=== PATIENT | female | born 1935 | race African-American/Black ===

== ENCOUNTER → 2017-05-04 | Outpatient (CLI) | payer MEDICARE ==
[~2017-05-04] MED LIST: AMLODIPINE BESYL5 MG PO; COMBIGAN EYE DRO5 ML OU; LUMIGAN2.5 M1 OP; MULTI-VITAMIN1 EACH PO; PRAVASTATIN SOD20 MG PO; XARELTO20 MG PO
--- NOTE | 2017-05-17 16:20 | Diagnostic Imaging Report ---
#[id number] - MGSCRBIL #BILATERAL DIGITAL SCREENING MAMMOGRAM WITH CAD: 05/04/2017 CLINICAL: Routine screening. Comparison is made to exams dated: 05/04/2016 mammogram, 04/20/2015 mammogram and 03/29/2014 mammogram - [facility]. Current study contains 4 films. The tissue of both breasts is heterogeneously dense. This may lower the sensitivity of mammography. Current study was also evaluated with a Computer Aided Detection (CAD) system. There are benign vascular calcifications in both breasts. No significant masses, calcifications, or other findings are seen in either breast. There has been no significant interval change. IMPRESSION: BENIGN There is no mammographic evidence of malignancy. A 1 year screening mammogram is recommended. The patient will be notified by letter of the results. Logan antonio/nissa:05/17/2017 11:12:27 Infusion Nurse: Noy GEE(Yemi)(M), [facility] letter sent: Compared to Prior B9 Mammogram BI-RADS: 2 Benign
== END ==
LOC: MAMMO 11:11
PROVIDERS: ATTEND Internal Medicine
DX: Z12.31 Encounter for screening mammogram for malignant neoplasm of breast (principal)
CPT/HCPCS: G0202

== ENCOUNTER → 2018-05-04 | Outpatient (CLI) | payer MEDICARE ==
--- NOTE | 2018-05-11 08:20 | Diagnostic Imaging Report ---
#[id number] - MGSCRBIL #BILATERAL DIGITAL SCREENING MAMMOGRAM WITH CAD: 05/04/2018 CLINICAL: Routine screening. Comparison is made to exams dated: 05/04/2017 mammogram and 04/20/2015 mammogram - [facility]. Current study contains 4 films. The tissue of both breasts is heterogeneously dense. This may lower the sensitivity of mammography. Current study was also evaluated with a Computer Aided Detection (CAD) system. There are benign vascular calcifications in both breasts. No significant masses, calcifications, or other findings are seen in either breast. There has been no significant interval change. IMPRESSION: BENIGN There is no mammographic evidence of malignancy. A 1 year screening mammogram is recommended. The patient will be notified by letter of the results. Logan antonio/nissa:05/09/2018 08:55:43 Dressed Poultry Grader: Noy GEE(R)(M), [facility] letter sent: Compared to Prior B9 Mammogram BI-RADS: 2 Benign
== END ==
LOC: MAMMO 12:14
PROVIDERS: ATTEND Internal Medicine
DX: Z12.31 Encounter for screening mammogram for malignant neoplasm of breast (principal)
CPT/HCPCS: 77067

== ENCOUNTER → 2019-05-06 | Outpatient (CLI) | payer MEDICARE ==
--- NOTE | 2019-05-21 09:11 | Diagnostic Imaging Report ---
#[id number] - MGSCRBIL #BILATERAL DIGITAL SCREENING MAMMOGRAM WITH CAD: 05/06/2019 Comparison is made to exams dated: 05/04/2018 mammogram and 05/04/2017 mammogram - [facility]. The tissue of both breasts is heterogeneously dense. This may lower the sensitivity of mammography. Current study was also evaluated with a Computer Aided Detection (CAD) system. There is an oval equal density asymmetry with a circumscribed margin in the right breast middle depth central to the nipple seen on the craniocaudal view only. No other significant masses, calcifications, or other findings are seen in either breast. IMPRESSION: INCOMPLETE: NEEDS ADDITIONAL IMAGING EVALUATION The oval equal density asymmetry in the right breast is indeterminate. Additional views as well as a possible ultrasound are recommended. The patient will be contacted by the Mammography Department to schedule this appointment. SHIMON tellez/nissa:05/20/2019 15:15:53 Tool Clerk: Noy GEE(R)(M), [facility] letter sent: Additional Imaging Needed Mammogram BI-RADS: 0 Indeterminate
== END ==
LOC: MAMMO 13:09
PROVIDERS: ATTEND Internal Medicine
DX: Z12.31 Encounter for screening mammogram for malignant neoplasm of breast (principal)
CPT/HCPCS: 77067

== ENCOUNTER 2019-07-23 19:01 | Emergency (ER) | payer MEDICARE ==
[~2019-07-23] VITALS: Ht 157.5 cm; Wt 58.5 kg
--- OUTSIDE RECORDS SUMMARY | 2019-07-23 19:04 | XMS REPORT ---
Author Author [facility] Address Unknown Phone Unavailable Care Team Providers Care Certified Pediatric Nurse Practitioner Name Role Phone FERN KIM Unavailable Unavailable Problems This patient has no known problems. Allergies, Adverse Reactions, Alerts This patient has no known allergies or adverse reactions. Medications This patient has no known medications. Results Test Description Test Time Test Comments Text Results Atomic Results Result Comments US BREAST LIMITED RIGHT 2019-06-11 13:43:00 [place] [address] Patient Name: TORY BECK MR #: [id number] : 1935 Age/Sex: 84/F Req #: [id number] [facility] Physician: Ordered by: FERN KIM MD Report #: [id number] Location: MAMMO Room/Bed: Procedure: [id number] US/US BREAST LIMITED RIGHT Exam Date: Exam Time: REPORT STATUS: Signed #[id number] - USBRELIMRT ULTRASOUND OF THE RIGHT BREAST : 06/11/2019 Comparison is made to exams dated: 06/11/2019 mammogram and 05/06/2019 mammogram - [facility]. Color flow and real-time ultrasound were performed on the right breast. Hutchinson scale images of the real-time examination were reviewed. IMPRESSION: NEGATIVE There is no sonographic evidence of malignancy. A 1 year screening mammogram is recommended. SHIMON tellez/elizabeth:06/12/2019 10:04:42 Hand Candy Dipper: RACHEL HUDSON RDTN, [facility] letter sent: Normal Exam Ultrasound BI-RADS: 1 Negative Dictated By: SHIMON REZA MD 100 Transcribed By: ELIZABETH on 06/12/19 1004 COPY TO: FERN KIM MD MAMMOGRAPHY DIGITAL DX UNI RT 2019-06-11 13:19:00 [place] [address] Patient Name: TORY BECK MR #: [id number] : 1935 Age/Sex: 84/F Req #: [id number] Adm Physician: Ordered by: FERN KIM MD Report #: [id number] Location: MAMMO Room/Bed: Procedure: [id number] MG/MAMMOGRAPHY DIGITAL DX UNI RT Exam Date: 06/11/19 Exam Time: 1228 REPORT STATUS: Signed #[id number] - MGDXRT #UNILATERAL RIGHT DIG ITAL DIAGNOSTIC MAMMOGRAM WITH SPOT COMPRESSION: 06/11/2019 Comparison is made to exams dated: 05/06/2019 mammogram and 05/04/2018 mammogram - [facility]. The tissue of the right breast is heterogeneously dense. This may lower the sensitivity of mammography. The previously seen abnormality on screening mammogram presses out on compression images and likely represents superimposed gladular tissue. No significant masses, calcifications, or other findings are seen in the breast. There has been no significant interval change. IMPRESSION: NEGATIVE There is no mammographic evidence of malignancy. The patient will undergo ultrasound evaluation during the same visit as part of complete diagnostic workup. The patient will be notified by letter of the results. SHIMON REZA M.D. kw/:06/12/2019 10:03:09 Hand Candy Dipper: Noy DONOVAN (R)), [facility] letter sent: Compared to Prior B9 Mammogram BI- RADS: 1 Negative Dictated By: SHIMON REZA MD 1003 Transcribed By: ELIZABETH on 06/12/19 1003 COPY TO: FERN KIM MD MAMMOGRAPHY DIGITAL SCR BILAT 2019-05-06 13:52:00 [place] [address] Patient Name: TORY BECK MR #: [id number] : 1935 Age/Sex: 84/F Req #: [id number] Adm Physician: Ordered by: FERN KIM MD Report #: [id number] Location: MAMMO Room/Bed: Procedure: [id number] MG/MAMMOGRAPHY DIGITAL SCR BILAT Exam Date: 05/06/19 Exam Time: 1316 REPORT STATUS: Signed #[id number] - MGSCRBIL #BILATERAL DIGITAL SCREENING MAMMOGRAM WITH CAD: 05/06/2019 Comparison is made to exams dated: 05/04/2018 mammogram and 05/04/2017 mammogram - [facility]. The tissue of both breasts is heterogeneously dense. This may lower the sensitivity of mammography. Current study was also evaluated with a Computer Aided Detection (CAD) system. There is an oval equal density asymmetry with a circumscribed margin in the right breast middle depth central to the nipple seen on the craniocaudal view only. No other significant masses, calcifications, or other findings are seen in either breast. IMPRESSION: INCOMPLETE: NEEDS ADDITIONAL IMAGING EVALUATION The oval equal density asymmetry in the right breast is indeterminate. Additional views as well as a possible ultrasound are recommended. The patient will be contacted by the Mammography Department to schedule this appointment. SHIMON tellez/elizabeth:05/20/2019 15:15:53 Imaging Techno logist: Noy GEE(R)(Taylor), [facility] letter sent: Additional Imaging Needed Mammogram BI-RADS: 0 Indeterminate Dictated By: SHIMON REZA MD 14 Transcribed By: ELIZABETH on 05/20/191514 COPY TO: FERN KIM MD MAMMOGRAPHY DIGITAL SCR BILAT 2018-05-04 13:54:00 [place] [address] Patient Name: TORY BECK MR #: [id number] : 1935 Age/Sex: 83/F Req #: [id number] [facility] Physician: Ordered by: FERN KIM MD Report #: [id number] Location: MAMMO Room/Bed: Procedure: [id number] MG/MAMMOGRAPHY DIGITAL SCR BILAT Exam Date: 05/04/18 Exam Time: 1230 REPORT STATUS: Signed #[id number] - MGSCRBIL #BILATERAL DIGITAL SCREENING MAMMOGRAM WITH CAD: 05/04/2018 CLINICAL: Routine screening. Comparison is made to exams dated: 05/04/2017 mammogram and 04/20/2015 mammogram - [facility]. Current study contains 4 films. The tissue of both breasts is heterogeneously dense. This may lower the sensitivity of mammography. Current study was also evaluated with a Computer Aided Detection (CAD) system. There are benign vascular calcifications in both breasts. No significant masses, calcifications, or other findings are seen in either breast. There has been no significant interval change. IMPRESSION: BENIGN There is no mammographic evidence of malignancy. A 1 year screening mammogram is recommended. The patient will be notified by letter of the results. Lilia antonio/elizabeth:05/09/2018 08:55:43 Hand Candy Dipper: Noy GEE(R)(M), [facility] letter sent: Compared to Prior B9 Mammogram BI-RADS: 2 Benign Dictated By: LILIA RUSSO DO 4 Transcribed By: ELIZABETH on 05/09/18854 COPY TO: FERN KIM MD MAMMOGRAPHY DIGITAL SCR BILAT [place] [address] Patient Name: TORY BECK MR #: [id number] : 1935 Age/Sex: 82/F Req #: [id number] [facility] Physician: Ordered by: FERN KIM MD Report #: [id number] Location: MAMMO Room/Bed: Procedure: [id number] MG/MAMMOGRAPHY DIGITAL SCR BILAT Exam Date: 05/04/17 Exam Time: 1130 REPORT STATUS: Signed #[id number] - MGSCRBIL #BILATERAL DIGITAL SCREENING MAMMOGRAM WITH CAD: 05/04/2017 CLINICAL: Routine screening. Comparison is made to exams dated: 05/04/2016 mammogram, 04/20/2015 mammogram and 03/29/2014 mammogram - [facility]. Current study contains 4 films. The tissue of both breasts is heterogeneously dense. This may lower the sensitivity of mammography. Current study was also evaluated with a Computer Aided Detection (CAD) system. There are benign vascular calcifications in both breasts. No significant masses, calcifications, or other findings are seen in either breast. There has been no significant interval change. IMPRESSION: BENIGN There is no mammographic evidence of malignancy. A 1 year screening mammogram is recommended. The patient will be notified by letter of the results. Lilia antonio/elizabeth:05/17/2017 11:12:27 Hand Candy Dipper: Noy GEE(R)(M), [facility] letter sent: Compared to Prior B9 Mammogram BI-RADS: 2 Benign Dictated By: LILIA RUSSO DO 1112 Transcribed By: ELIZABETH on 05/17/17 1112 COPY TO: FERN KIM MD
[2019-07-23] MEDS ORDERED: DEXAMETHASONE SOD PHOS 10 MG/1 ML VIAL IV ONE (21:00)
[2019-07-23] MEDS ORDERED: CEFEPIME HCL 2 GM VIAL IV SCH (21:00)
[2019-07-23] MEDS ORDERED: CEFEPIME 2 GM/NS 0.9% 100 ML 100 ML IV ONE (21:15)
--- NOTE | 2019-07-23 21:24 | Diagnostic Imaging Report ---
CT BRAIN WO HISTORY: Headache, neck pain COMPARISON: None. Technique: Noncontrast axial scans were obtained from skull base to the vertex. Coronal and sagittal reconstructions obtained from the axial data. One or more of the following dose reduction techniques were used: Automated exposure control, adjustment of the mA and/or kV according to patient size, and/or utilization of iterative reconstruction technique. DISCUSSION: Scalp/Skull: Unremarkable. Brain sulci: Mildly prominent. Ventricles: Compensatory dilatation. Extra-axial spaces: No masses or fluid collections. Carotid siphon calcifications are present. Parenchyma: Mild bilateral deep white matter hypodensity is likely chronic microvascular ischemic change. Otherwise, no masses, hemorrhage, or large vascular territory acute infarct. Dural sinuses: No abnormal densities. Sellar/Suprasellar region: Intact. Skull base: Intact. Incidental findings: None. IMPRESSION: 1. No acute intracranial abnormalities. 2. Mild supratentorial chronic microvascular ischemic change. Mild generalized cerebral volume loss. Signed by: Dr. Gee Giron M.D. on 07/23/2019 9:21 PM
[2019-07-23 21:26] LABS: BASOPHILS % 0.2 % (0.0-1.0); EOSINOPHILS % 0.2 % (0.0-6.0); HEMATOCRIT 35.1 % (34.2-44.1); HEMOGLOBIN 11.8 g/dL (12.0-16.0); LYMPHOCYTES # (AUTO) 1.3 (1.0-3.2); LYMPHOCYTES % 13.1 % (18.0-39.1); MEAN CORPUSCULAR HEMOGLOBIN 28.4 pg (28-32); MEAN CORPUSCULAR HGB CONC 33.6 g/dL (31-35); MEAN CORPUSCULAR VOLUME 84.6 fL (81-99); MONOCYTES # (AUTO) 0.6 (0.2-0.8); MONOCYTES % 5.9 % (4.4-11.3); NEUTROPHILS # (AUTO) 7.8 (2.1-6.9); NEUTROPHILS % 80.3 % (38.7-80.0); PLATELET COUNT 250 x10e3/uL (140-360); RED BLOOD COUNT 4.15 x10e6/uL (3.6-5.1); RED CELL DISTRIBUTION WIDTH 15.1 % (11.7-14.4)
[2019-07-23] MEDS ORDERED: VANCOMYCIN 1GM/NS 250 ML 250 ML IV ONE (21:30)
--- NOTE | 2019-07-23 21:33 | Diagnostic Imaging Report ---
CT CERVICAL SPINE WO HISTORY: Headache, neck pain COMPARISON: Concurrent head CT TECHNIQUE: CT of the cervical spine without contrast. Sagittal and coronal reformations were created. One or more of the following dose reduction techniques were used: Automated exposure control, adjustment of the mA and/or kV according to patient size, and/or utilization of iterative reconstruction technique. FINDINGS: Mild bone demineralization limits evaluation. Cervical lordosis is straightened. There is no scoliosis or subluxation. No definite acute fracture or compression deformity is seen The craniocervical junction is intact. No gross spinal canal masses are seen. The paravertebral and paraspinal soft tissues are unremarkable. Multilevel advanced spondylotic changes and bilateral facet arthrosis are present. Advanced atlantoaxial arthrosis is present as well. The right C5-C6 facet joint is fused. Suspected moderate to severe canal stenoses at C2-C3 and C3-C4 due to posterior disc osteophyte complexes and ligamentum flavum thickening. Multilevel bilateral moderate to severe foraminal stenoses are due to uncovertebral and facet arthrosis. There is scarring in the lung apices. Moderate bilateral carotid bulb calcified plaque is present. IMPRESSION: 1. No acute osseous abnormalities. 2. Multilevel advanced spondylosis and bilateral facet arthrosis. 3. 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 4. Multilevel bilateral moderate to severe degenerative foraminal stenoses. Cannot exclude ligament, spinal cord and or vascular abnormalities on the basis of this examination. Signed by: Dr. Gee Giron M.D. on 07/23/2019 9:30 PM
[2019-07-23 21:37] LABS: INR 1.11
[2019-07-23 21:46] LABS: ALANINE AMINOTRANSFERASE 10 IU/L (0-55); ALBUMIN 4.2 g/dL (3.5-5.0); ALBUMIN/GLOBULIN RATIO 0.7 (0.8-2.0); ALKALINE PHOSPHATASE 80 IU/L (40-150); ANION GAP 11.6 mmol/L (8-16); BLOOD UREA NITROGEN 8 mg/dL (7-26); BUN/CREATININE RATIO 9 (6-25); CALCIUM 10.4 mg/dL (8.4-10.2); CARBON DIOXIDE 27 mmol/L (22-29); CHLORIDE 101 mmol/L (98-107); CREATINE KINASE 328 IU/L (29-168); CREATININE, SERUM 0.92 mg/dL (0.57-1.11); EST GLOMERULAR FILTRATION RATE > 60 ML/MIN (60-); GLUCOSE 99 mg/dL (74-118); POTASSIUM 3.6 mmol/L (3.5-5.1); SODIUM 136 mmol/L (136-145)
[2019-07-23] MEDS ORDERED: ACETAMINOPHEN 325 MG TAB ONE (23:41)
[2019-07-23] MEDS ORDERED: ACETAMINOPHEN 325 MG TAB PO ONE (23:45)
[2019-07-24 00:13] LABS: CLARITY,URINE CLEAR (CLEAR); COLOR,URINE YELLOW (YELLOW); LEUKOCYTE ESTERASE ,URINE TRACE (NEGATIVE); NITRITE,URINE NEGATIVE (NEGATIVE); PROTEIN,URINE DIPSTICK 1+ (NEGATIVE)
[2019-07-24 00:14] LABS: BILIRUBIN,URINE NEGATIVE (NEGATIVE); KETONES,URINE 1+ (NEGATIVE); URINE UROBILINOGEN 0.2 mg/dL (0.2 - 1)
--- NOTE | 2019-07-24 00:30 | Diagnostic Imaging Report ---
EXAMINATION: CHEST SINGLE (PORTABLE) INDICATION: Chest pain. COMPARISON: None FINDINGS: TUBES and LINES: None. LUNGS: Lungs are well inflated. Minimal patchy bibasilar opacities, likely atelectasis. Tiny high density nodular opacities in the right midlung, likely calcified granulomas. There is no evidence of pneumonia or pulmonary edema. PLEURA: No pleural effusion or pneumothorax. HEART AND MEDIASTINUM: The cardiomediastinal silhouette is unremarkable. There are atherosclerotic calcifications within the aorta. BONES AND SOFT TISSUES: No acute osseous lesion. Soft tissues are unremarkable. UPPER ABDOMEN: No free air under the diaphragm. IMPRESSION: No acute thoracic abnormality. Signed by: Dr. Taylor Dalal MD on 07/24/2019 12:27 AM
[2019-07-24 00:34] LABS: BACTERIA,URINE FEW /HPF; EPITHELIAL CELLS,URINE FEW /LPF; TRANSITIONAL EPI CELLS,URINE FEW; WBC,URINE (MAN) 21-50 /HPF (0-5)
[2019-07-24] MEDS ORDERED: CEFTRIAXONE SOD 1 GM/NS 50 ML 50 ML IV ONE ×2 (00:45→00:46)
== END 2019-07-24 01:45 | disposition home or self-care (01) ==
LOC: ER 19:01
DX: R51 Headache (principal); M47.892 Other spondylosis, cervical region; N30.91 Cystitis, unspecified with hematuria
CPT/HCPCS: 36415; 70450; 71045; 72125; 80053; 81001; 82550; 82553; 84484; 85025; 85610; 87040; 87400; 99284; J0696

== ENCOUNTER → 2020-05-14 | Outpatient (CLI) | payer MEDICARE | LOC: MAMMO 09:47 | PROVIDERS: ATTEND Internal Medicine | DX: Z12.31 Encounter for screening mammogram for malignant neoplasm of breast (principal) | CPT/HCPCS: 77067 ==

== ENCOUNTER → 2021-05-13 | Outpatient (CLI) | payer MEDICARE | LOC: MAMMO 13:56 | PROVIDERS: ATTEND Internal Medicine | DX: Z12.31 Encounter for screening mammogram for malignant neoplasm of breast (principal) | CPT/HCPCS: 77067 ==

== ENCOUNTER → 2024-05-20 | Outpatient (REF) | payer MEDICARE | LOC: MAMMO 10:07 | PROVIDERS: ATTEND Internal Medicine | DX: Z12.31 Encounter for screening mammogram for malignant neoplasm of breast (principal) | CPT/HCPCS: 77067 ==